=== PATIENT | female | born 1995 | race African-American/Black ===

== ENCOUNTER 2021-09-24 13:56 | Emergency (ER) | payer MEDICAID, OTHER ==
[~2021-09-24] VITALS: Ht 167.6 cm; Wt 80.3 kg
[2021-09-24] MEDS ORDERED: CEPH500T PO (15:56)
[2021-09-24] MEDS ORDERED: IBUP800T27 PO (15:56)
[2021-09-24 16:14] VITALS: BP 133/89
== END 2021-09-24 16:28 | disposition home or self-care (01) ==
LOC: ER 13:56
DX: L02.32 Furuncle of buttock (principal); Z79.1 Long term (current) use of non-steroidal anti-inflammatories (NSAID); Z79.2 Long term (current) use of antibiotics

== ENCOUNTER 2021-09-27 09:01 | Emergency (ER) | payer MEDICAID ==
[~2021-09-27] VITALS: Ht 167.6 cm; Wt 80.7 kg
[~2021-09-27 09:01] MED LIST: CEPH500T PO; IBUP800T27 PO
[2021-09-27 09:13] VITALS: BP 148/99
[2021-09-27] MEDS ORDERED: LIDOCAINE 1% HCL (LOCAL ANESTH.) INJ 20ML MDV ONE (09:32)
[2021-09-27] MEDS ORDERED: LIDOCAINE HCL 100 MG/5ML (2%) SYRG INJ IV ONE (09:45)
== END 2021-09-27 09:59 | disposition home or self-care (01) ==
LOC: ER 09:01
DX: L02.31 Cutaneous abscess of buttock (principal); F12.10 Cannabis abuse, uncomplicated
CPT/HCPCS: 10060; 99283; J2001